=== PATIENT | male | born 2000 | race Caucasian/White ===

== ENCOUNTER 2021-08-22 23:47 | Emergency (ER) | payer OTHER, SELFPAY ==
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
[2021-08-22 23:50] VITALS: BP 130/90; BP 155/92; PULSE 100; PULSE 110; RESP 13; O2SAT 98; O2SAT 99; BMI 26.6
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
--- NOTE | 2021-08-23 00:16 | PC.NURSE ---
18g placed in left AC and labs obtained by Syl GARDNER bloodwork sent to lab
[2021-08-23 00:19] LABS: Basophils Absolute Auto 0.1 X10*3/uL (0.0-0.2); Basophils Percent Auto 0.5 % (0-2); Eosinophils Absolute Auto 0.4 X10*3/uL (0.0-0.4); Eosinophils Percent Auto 3.3 % (0-4); Hematocrit 44.1 % (42-52); Hemoglobin 15.6 g/dl (14.0-18.0); Imm Gran Abs Auto 0.13 X10*3/uL (0.00-0.03); Lymphocytes Absolute Auto 3.1 X10*3/uL (1.2-4.9); Lymphocytes Percent Auto 23.6 % (20-40); MANUAL DIFF FLAG NO; Mean Corpuscular HGB Conc 35.4 g/dl (31.0-36.0); Mean Corpuscular Hemoglobin 31.1 pg (27.0-33.0); Mean Platelet Volume 10.4 fL (9.4-12.4); Monocytes Percent Auto 7.6 % (2-11); Neutrophils Absolute Auto 8.3 X10*3/uL (2.0-8.3); Platelet Count 211 X10*3/uL (160-400); Red Blood Count 5.01 X10*6/uL (4.60-5.80); Red Cell Distribution Width 12.1 % (11.0-16.0)
--- NOTE | 2021-08-23 00:24 | PC.NURSE ---
pt in CT
[2021-08-23 00:26] LABS: INTERNATIONAL NORM RATIO 1.2 (0.9-1.1); Prothrombin Time 13.1 SEC (9.9-13.0)
[2021-08-23 00:29] LABS: Partial Thromboplastin Time 36.7 SEC (24.1-38.0)
[2021-08-23 00:35] LABS: COVID-19 Test Negative (Negative); IDNOW Serial# 9DD0AD1C
[2021-08-23 00:38] LABS: Alanine Aminotransferase 15 U/L (0-40); Albumin Level 4.7 g/dL (3.5-5.0); Alkaline Phosphatase 68 U/L (39-117); Anion Gap 13 (12-20); Aspartate Amino Transferase 20 U/L (5-37); Bilirubin Total 0.8 mg/dL (0.0-1.0); Blood Urea Nitrogen 14 mg/dL (9-16); Calcium 9.9 mg/dL (8.4-10.2); Carbon Dioxide 26 mmol/L (22-29); Chloride 106 mmol/L (96-108); Creatinine Clr Calc Pharmacy 91.9; Estimated Glomerular Filt Rate > 60; Glucose Random 97 mg/dL (60-115); Lipase 23 U/L (8-78); Potassium 3.7 mmol/L (3.3-5.1); Sodium 141 mmol/L (135-145); Total Protein 7.3 g/dL (6.5-8.0)
[2021-08-23 00:44] LABS: Troponin-I High Sensitivity 10.6 ng/L (<3.5-35.0)
--- NOTE | 2021-08-23 00:51 | PC.NURSE ---
pt back from CT hydro technicianad Sanchez at bedside obtaining EKG and remaining lab work
[2021-08-23] MEDS: Diphth,Pertus(ACell),Tet Adult 0.5 ML SYRINGE IM (00:54)
[2021-08-23] MEDS: Ketorolac Tromethamine 15 MG/ML VIAL IVPUSH (00:54)
[2021-08-23] MEDS: iohexoL 350 MG/ML 100 ML INFUS..BTL 85 ML IV (01:04)
[2021-08-23 01:21] LABS: Lactic Acid 1.5 mmol/L (0.5-2.0)
[2021-08-23 01:23] LABS: Ethanol < 10 mg/dL
--- NOTE | 2021-08-23 02:09 | PC.NURSE ---
nurse to nurse report given to Shahriar GARDNER at [facility]
--- NOTE | 2021-08-23 02:20 | PC.NURSE ---
nurse to nurse report given again to Raine GARDNER at [facility] per [facility] staff, previous staff member that this nurse gave report to is not a nurse and is unable to take report despite them saying they could take nurse to nurse report.
== END 2021-08-23 02:00 | disposition short-term general hospital (02) ==
LOC: HO.ED 08-23 01:23
PROVIDERS: Emergency Provider Student in an Organized Health Care Education/Training Program
DX: S12.100A Unspecified displaced fracture of second cervical vertebra, initial encounter for closed fracture (principal); S40.212A Abrasion of left shoulder, initial encounter; S40.211A Abrasion of right shoulder, initial encounter; M54.2 Cervicalgia; G44.309 Post-traumatic headache, unspecified, not intractable; M54.50 Low back pain, unspecified; V47.5XXA Car driver injured in collision with fixed or stationary object in traffic accident, initial encounter; Y93.9 Activity, unspecified; Y92.410 Unspecified street and highway as the place of occurrence of the external cause; Y99.9 Unspecified external cause status; Z20.822 Contact with and (suspected) exposure to COVID-19
CPT/HCPCS: 36415; 70450; 71260; 72125; 74177; 80053; 82077; 83605; 83690; 84484; 85025; 85610; 85730; 86850; 86900; 86901; 87635; 90471; 90715; 93005; 96374; 99285; J1885; Q9967